=== PATIENT | female | born 1985 | race Two or more races ===

== ENCOUNTER 2025-01-10 07:52 | Outpatient (RCR) | payer MEDICAID, SELFPAY | END 2025-01-19 23:59 | disposition home or self-care (01) | LOC: SCTC 07:52 | PROVIDERS: PCP Family Medicine; Referring Provider Family Medicine; Visit Provider Nurse Practitioner Family | DX: D50.9 Iron deficiency anemia, unspecified (principal); D75.839 Thrombocytosis, unspecified | CPT/HCPCS: 99213; G0463 ==

== ENCOUNTER → 2025-02-20 | Outpatient (CLI) | payer MEDICAID, SELFPAY ==
--- NOTE | 2025-02-20 15:30 | XR_ITS ---
Examination: CT abdomen with intravenous contrast CT pelvis with intravenous contrast 2-D coronal reconstructions 2-D sagittal reconstructions Date and time of exam:February 20, 2025, 1550 hours. COMPARISON: December 16, 2021. INDICATIONS: Diagnosis deficiency anemia, unspecified, diagnoses 1 year ago.. CTDI: vol (mGy) 8.15. DLP: (mGycm) 400 Technique: Multiple axial sections of the abdomen and pelvis have been obtained. 64 slice high-resolution scanner used. 3 mm axial sections have been obtained, post intravenous injection 60 cc Isovue 370. 2-D sagittal, coronal reconstructions obtained. Low dose protocols were performed. One or more of the following dose reduction techniques were used; automated exposure control, adjustment of the mA and/or KV according to patient size, use of iterative reconstruction technique. Findings: Stable 6 mm cyst, splenic Hepatomegaly, 19 cm. Contracted gallbladder. No pancreatic or adrenal mass. No renal or ureteral calculi, no hydronephrosis Aorta normal size. Normal appendix. No bowel obstruction or diverticulitis. No pelvic mass. Partially retroverted uterus. Urinary bladder intact. Moderate disc narrowing L5-S1. IMPRESSION: Hepatomegaly, 19 cm No acute process in the abdomen or pelvis
[2025-02-20 15:37] LABS: HCG Qualitative,Urine Negative
== END | disposition home or self-care (01) ==
PROVIDERS: Referring Provider Nurse Practitioner Family; Visit Provider Nurse Practitioner Family
DX: R16.0 Hepatomegaly, not elsewhere classified (principal); Z32.00 Encounter for pregnancy test, result unknown
CPT/HCPCS: 74177; 81025; A4649; Q9967

== ENCOUNTER 2025-03-06 15:14 | Outpatient (RCR) | payer MEDICAID, SELFPAY | END 2025-03-21 23:59 | disposition home or self-care (01) | LOC: SCTC 15:14 | PROVIDERS: Referring Provider Nurse Practitioner Family; Visit Provider Nurse Practitioner Family | DX: D50.9 Iron deficiency anemia, unspecified (principal); R16.2 Hepatomegaly with splenomegaly, not elsewhere classified | CPT/HCPCS: 99212; G0463 ==

== ENCOUNTER 2025-05-21 14:31 | Outpatient (RCR) | payer MEDICAID, SELFPAY | END 2025-05-21 23:59 | disposition home or self-care (01) | LOC: SCTC 14:31 | PROVIDERS: Referring Provider Nurse Practitioner Family; Visit Provider Nurse Practitioner Family | DX: D50.9 Iron deficiency anemia, unspecified (principal); R16.2 Hepatomegaly with splenomegaly, not elsewhere classified; Z71.41 Alcohol abuse counseling and surveillance of alcoholic | CPT/HCPCS: 96365; 96375; A4216; J1756; J2919; J3490; J7040 ==

== ENCOUNTER 2025-06-18 15:22 | Outpatient (RCR) | payer MEDICAID, SELFPAY | END 2025-06-21 23:59 | disposition home or self-care (01) | LOC: SCTC 15:22 | PROVIDERS: PCP Family Medicine; Referring Provider Family Medicine; Visit Provider Nurse Practitioner Family | DX: D50.9 Iron deficiency anemia, unspecified (principal); R16.2 Hepatomegaly with splenomegaly, not elsewhere classified | CPT/HCPCS: 99212; G0463 ==